=== PATIENT | female | born 1965 | race Caucasian/White ===

== ENCOUNTER → 2016-11-30 | Day surgery (SDC) | payer OTHER ==
[2016-11-11 12:13] VITALS: BMI 28.9
[~2016-11-30] MED LIST: BUPIVACAINE 0.5% 30 ML VIAL ONE; CEFAZOLIN 1 GM VIAL ONE; FENTANYL 100 MCG/2 ML VIAL IV ONE; FENTANYL 100 MCG/2 ML VIAL IV PRN; HEPARIN 5000 UNITS/ML VIAL ONE; HYDROmorphone 1 MG INJECTION IV PRN; ISOVUE-300 (61%) 50 ML ONE; LABETALOL 20 MG/4 ML SYRINGE IV PRN; LIDOCAINE 1% 30 ML VIAL (PRESERVATIVE FREE) ONE; MEPERIDINE 25 MG/ML TUBEX IV PRN; MIDAZOLAM 2 MG/2 ML VIAL IV ONE; ONDANSETRON HCL 4 MG ODT TAB PO PRN; ONDANSETRON HCL 4 MG/2 ML VIAL IV PRN; ONDANSETRON HCL 4 MG/2 ML VIAL ONE; PROMETHAZINE 25 MG/ML VIAL IV PRN; PROPOFOL 200 MG/20 ML VIAL IV ONE; hydrALAZINE 20 MG/ML VIAL IV PRN
--- NOTE | 2016-11-30 07:02 | SC.ANESPOS ---
Post-Anesthesia Note LOC: Fully Awake Post-Anesthesia Assessment: Awake, Returned to Baseline, Hemodynamically Stable , Pain Control Adequate Phase I & II Recovery Complete: Yes Apparent Anesthesia Complication: No : N - Vital Signs Blood Pressure: 130/73 Pulse: 51 Resp Rate: 16 O2 Sat: 100 Temp: 98.3 F
--- NOTE | 2016-11-30 07:05 | HIM.ANES ---
Anesthesia Evaluation & Plan Diagnoses: MALIGNANT NEOPLASM OF ANUS, UNSPECIFIED (11/30/16) - Focused Review of Systems Cardiac History: Yes: Hx Hypertension (PRE HYPERTENSION), Hx Cardiac Disorders HEENT: Yes: Hx Vision Problem (PRESCRIPTION GLASSES), Other HEENT Problems Hx Other HEENT Surgery: TONSILECTOMY AGE 6 Respiratory: Yes: Hx Snoring Gastrointestinal: Yes: Hx Gastrointestinal Disorders, Hx Diverticulitis, Hx Colonoscopy (POLYPECTOMY ) No: Hx Endoscopy Neurological/Musculoskeletal: No: Hx Neurological Disorders Psychological: No Hx Mental/Emotional Disorders Blood/Autoimmune: No: Hx Blood Transfusions, Hx AIDS, Hx Hepatitis (type) Smoking Status: Never smoker Surgical History: No: Cholecystectomy Other Surgical History: TONSILECTOMY AGE 6 - Focused Physical Exam Mallampati: Class II Thyromental Distance: Greater than 3 Neck: Full Range of Motion Dental: Normal - no significant findings Cardiovascular/Chest: Normal Respiratory: Lungs clear Any problems with anesthesia, including nausea and vomiting?: Yes (SEVERE MOTION SICKNESS. FAMILY HISTORY OF N&V WOULD LIKE MEDICATION ) Any relatives with a history of Malignant Hyperthermia?: No Does the patient have a history of Motion Sickness-: Yes Other: PT/PTT/INR/ Urine Test Neg (NEGATIVE) 11/30/16 06:30 Allergies Allergy/AdvReac Type Severity Reaction Status Date / Time No Known Allergies Allergy Verified 11/27/16 17:18 Home Medications Medication Instructions Recorded Last Taken Type Estrogen 0.5mg/ Pregesterone 75mg/ 1 tab PO DAILY 08/07/16 11/10/16 08:00 History Dha 1.5 Hydrochlorothiazide 12.5 mg PO DAILY 08/07/16 11/10/16 08:00 History Height and Weight Patient's height 5 ft 5 in Patient's weight 169 lb BMI 28.9 - Anesthetic Plan Anesthesia Type: MAC ASA Class: 2 -: I have examined this patient and reviewed the medical record. The patient has been assessed prior to anesthesia. Risks and benefits of anesthesia and anesthetic technique options have been discussed and all questions answered. The patient accepts the risk and desires me to proceed with the planned anesthetic.
[2016-11-30] MEDS: CEFAZOLIN 1 GM VIAL ONE ×2 (07:24→08:38)
--- NOTE | 2016-11-30 08:55 | HIMOPRPT ---
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 SURGEON: Aramis Anne DO. ANESTHESIA: Monitored anesthesia care with local anesthetic. ANESTHESIOLOGIST: Dr. Joby Gamboa DRAINS: None. SPONGE COUNT: Correct COMPLICATIONS: Stat portable chest x-ray pending at time of this report PATIENT CONDITION: Stable. ESTIMATED BLOOD LOSS: 1 mL. SPECIMEN: None. INDICATIONS: This is a 50-year-old female with squamous cell carcinoma of the anus. It was recommended to the patient portacath insertion for chemotherapy. Risks were discussed with the patient in detail include, but not limited to bleeding, infection, pneumothorax requiring tube thoracostomy, possible emergent thoracotomy, deep vein thrombosis, resultant pulmonary embolism, and perioperative cardiac and respiratory morbidity and mortality. All questions were answered. Informed consent was obtained FINDINGS: On fluoroscopy, catheter tip appeared to be in the right atrial superior vena cava junction. Stat portable chest x-ray postprocedure is pending at the time of this dictation PROCEDURE IN DETAIL: ROBB PATEL was taken to the operative suite at [facility] and placed in supine position. Monitored anesthesia care was begun. Having successful completion of this, the right and left side of the neck and chest was sterilely prepped and draped in the usual fashion. The patient was placed in Trendelenburg position, infiltrated with local anesthetic inferior to the right clavicle. An 18-gauge needle was advanced under negative suction. There was return of dark bluish nonpulsatile blood. Guidewire was inserted without difficulty and with fluoroscopic guidance, it was identified in the distal superior vena cava at right atrial junction. It was clipped to the drape sterilely. The right chest was infiltrated with local anesthetic. Transverse incision was made and subcutaneous pocket was formed. It was made hemostatic with electrocautery. The catheter was tunneled from the needle insertion site to the subcutaneous pocket, clamped to the drape sterilely, and utilizing the standard Seldinger technique over the guidewire, a dilator and introducer sheath were placed. Dilator and guidewire were removed. Again utilizing fluoroscopic guidance, catheter was inserted in the distal superior vena cava at right atrial junction. No PVCs or PACs were identified. The peel- away sheath was removed. The catheter was cut to fit and attached to the previously flushed Port-A-Cath reservoir and secured. This Port-A-Cath reservoir was sewn in with 2-0 Vicryl suture at 3 places to the muscle and fascia. It was accessed with the Dhillon needle with excellent blood return. It was then flushed with heparinized saline. The subcutaneous tissue was closed with 3-0 Vicryl and the skin was closed with 4-0 Monocryl subcuticular stitch at all skin incisions. Dermabond was applied. Dressings were applied. The patient was taken to recovery, having tolerated procedure well.
--- NOTE | 2016-11-30 09:25 | DIRPT ---
CLINICAL DATA: 50-year-old female status post jorge cath placement. Anorectal cancer. Subsequent encounter. EXAM: CHEST 1 VIEW COMPARISON: PET-CT 11/25/2016 and earlier FINDINGS: Portable AP upright view at 0907 hours. Right subclavian approach jorge cath in place. Catheter tip about 1 vertebral body below the level of the srinath at the level of the lower SVC. Normal cardiac size and mediastinal contours. No pneumothorax, pulmonary edema, pleural effusion or confluent pulmonary opacity. IMPRESSION: Right chest jorge cath placed with no adverse features. Catheter tip at the lower SVC level. Electronically Signed By: Tonio Malik M.D. On: 11/30/2016 09:22
[2016-11-30 10:07] VITALS: TEMP 98.3
[2016-11-30 10:34] VITALS: PULSE 51
[2016-11-30 13:49] VITALS: BP 130/73
== END ==
LOC: SDC 06:19
PROVIDERS: ATTEND Surgery
PROC: 02HV33Z Insertion of Infusion Device into Superior Vena Cava, Percutaneous Approach (ICD-10-PCS; principal; 2016-11-30 07:55)
DX: C21.0 Malignant neoplasm of anus, unspecified (principal); I10 Essential (primary) hypertension
CPT/HCPCS: 36561; 77001; 81025; C1788; J0690; J1644; J2001; J2250; J2405; J3010; J3490